=== PATIENT | female | born 1980 | race Caucasian/White ===

== ENCOUNTER 2022-11-04 08:30 | Outpatient (CLI) | payer BC, SELFPAY ==
[2022-11-04 14:07] LABS: Chloride* 105 mmol/L (96-114)
[2022-11-04 14:08] LABS: Potassium* 4.4 mmol/L (3.6-5.1); Sodium* 138 mmol/L (135-149)
[2022-11-04 14:10] LABS: Blood Urea Nitrogen* 13 mg/dL (5-24); Carbon Dioxide* 29 mmol/L (20-32); Cholesterol* 173 mg/dL (90-199); Creatinine* 0.6 mg/dL (0.5-1.5); Estimated Glomerular Filt Rate 116 ml/min
[2022-11-04 14:11] LABS: Calcium* 9.4 mg/dL (8.4-10.6); Glucose* 94 mg/dL (60-115); HDL Cholesterol* 81 mg/dL (>=50); LDL Cholesterol Calculated 77 mg/dL (<100); Triglycerides* 74 mg/dL (40-149)
== END 2022-11-04 08:31 | disposition home or self-care (01) ==
PROVIDERS: PCP Family Medicine; Visit Provider Family Medicine
DX: E03.9 Hypothyroidism, unspecified (principal); Z13.6 Encounter for screening for cardiovascular disorders
CPT/HCPCS: 80048; 80061; 84443

== ENCOUNTER 2023-09-10 09:14 | Outpatient (CLI) | payer BC, SELFPAY | END 2023-09-10 09:15 | disposition home or self-care (01) | LOC: NFLDREF 09:14 | PROVIDERS: PCP Family Medicine; Visit Provider Family Medicine | DX: E03.9 Hypothyroidism, unspecified (principal) | CPT/HCPCS: 84443 ==

== ENCOUNTER 2025-03-21 08:06 | Outpatient (CLI) | payer BC, SELFPAY | END 2025-03-21 08:07 | disposition home or self-care (01) | LOC: NFLDREF 03-28 01:46 | PROVIDERS: PCP Family Medicine; Referring Provider Family Medicine; Visit Provider Family Medicine | DX: Z00.01 Encounter for general adult medical examination with abnormal findings (principal); E89.0 Postprocedural hypothyroidism; Z13.6 Encounter for screening for cardiovascular disorders | CPT/HCPCS: 80048; 80061; 84443 ==

== ENCOUNTER 2025-03-22 15:04 | Outpatient (CLI) | payer BC, SELFPAY ==
--- NOTE | 2025-03-22 15:20 | CRLHL7_ITS ---
For Patients: As a result of the Century Cures Act, medical imaging exams and procedure reports are released immediately into your electronic medical record. You may view this report before your referring provider. If you have questions, please contact your health care provider. INDICATION: BILATERAL SCREENING MAMMOGRAM, ASYMPTOMATIC 44 Y/O FEMALE COMPARISON: 10/13/2023, 10/18/2020 TECHNIQUE: CC and MLO views were obtained. These mammographic images have been obtained using full-field digital technique. These mammographic images were interpreted with the benefit of computer aided detection and tomosynthesis. BREAST COMPOSITION: There are scattered areas of fibroglandular density. FINDINGS: No suspicious findings. ASSESSMENT: BI-RADS 1 Negative RECOMMENDATION: Annual screening mammogram. A lay language report of this examination will be provided to the patient. Dictated by: Stevie Gamboa MD @ 03/23/2025 08:53:02 (Electronically Signed)
== END 2025-03-22 15:05 | disposition home or self-care (01) ==
LOC: MAMMO 15:04
PROVIDERS: PCP Family Medicine; Visit Provider Family Medicine
DX: Z12.31 Encounter for screening mammogram for malignant neoplasm of breast (principal)
CPT/HCPCS: 77063; 77067